=== PATIENT | female | born 2000 ===

== ENCOUNTER 2023-11-01 15:04 | Emergency (ER) | payer SELFPAY ==
[2023-11-01] MEDS: Diphtheria,Pertussis(Acell),Tetanus Vaccine 0.5 ML Syringe IM ONE (16:26)
[2023-11-01] MEDS: Lidocaine 1% 5 ML VIAL INJECT STA (16:27)
== END 2023-11-01 16:50 | disposition home or self-care (01) ==
LOC: MW.ED 15:04 → MERGE 15:04 → MW.ED 16:50
DX: S61.217A Laceration without foreign body of left little finger without damage to nail, initial encounter (principal); Z23 Encounter for immunization; Z75.8 Other problems related to medical facilities and other health care; W26.8XXA Contact with other sharp object(s), not elsewhere classified, initial encounter
CPT/HCPCS: 12001; 90471; 90715; 99282-25; J3490